=== PATIENT | male | born 1965 | race Caucasian/White ===

== ENCOUNTER 2017-12-07 14:39 | Emergency (ER) | payer OTHER ==
[2017-12-07 14:48] VITALS: BP 166/88
--- NOTE | 2017-12-07 15:45 | ED Physician Documentation ---
PD HPI WOUND RECHECK - Stated complaint Stated Complaint: POSS NEEDLE STICK - Chief complaint Chief Complaint: Needlestick - Histroy obtained from History obtained from: Patient - History of Present Illness Location: Left Uppper Extremity (He is up-to-date on tetanus, he works as a life manager here and he was stuck with a needle that was in the garbage. He brings the needle with him, it is clearly a draw needle as opposed to a needle that should have been used on a patient so that is reassuring.) Review of Systems Constitutional: reports: Reviewed and negative Cardiac: reports: Reviewed and negative Respiratory: reports: Reviewed and negative PD PAST MEDICAL HISTORY - Past Medical History Past Medical History: No - Present Medications Home Medications: Ambulatory Orders Medication Instructions Recorded Confirmed No Known Home Medications [No 12/07/17 12/07/17 Known Home Medications] - Allergies Allergies/Adverse Reactions: Allergies Allergy/AdvReac Type Severity Reaction Status Date / Time No Known Drug Allergies Allergy Verified 12/07/17 14:46 - Social History Does the pt smoke?: No Smoking Status: Never smoker PD ED PE NORMAL - Vitals Vital signs reviewed: Yes - General General: Alert and oriented X 3, No acute distress - Extremities Extremities: Other (Tiny puncture wound left palm near the distal second metacarpal) - Neuro Neuro: Alert and oriented X 3, Normal speech Results - Vitals Vitals: Vital Signs - 24 hr 12/07/17 14:42 Temperature 36.8 C Heart Rate 74 Respiratory 14 Rate Blood Pressure 166/88 H O2 Saturation 96 Oxygen O2 Source Room air PD MEDICAL DECISION MAKING - ED course ED course: He was punctured by draw needle which is very reassuring and I recommended against postexposure prophylaxis, he will have baseline testing and repeat testing per routine. Departure - Departure Disposition: 01 Home, Self Care Clinical Impression: Needlestick injury accident Condition: Good Record reviewed to determine appropriate education?: Yes Instructions: ED Body Fluid Exp HC Worker Comments: He will need repeat infectious disease testing with your physician in 2 months and 6 months, as discussed based on the type of needle this was, blood exposure is pretty much impossible. Your blood pressure was elevated today on check into the emergency department. This does not mean that you have hypertension, it is a common phenomenon to come to the emergency department and have elevated blood pressure. I recommend that you see your primary care physician within the week to have it rechecked when you are feeling better. Discharge Date/Time: 12/07/17 15:52
[2017-12-08 14:47] LABS: HEPATITIS A IGM NON-REACTIVE (NON-REACTIVE); HEPATITIS B CORE ANTIBODY IGM NON-REACTIVE (NON-REACTIVE); HEPATITIS B SURFACE ANTIGEN NON-REACTIVE (NON-REACTIVE); HEPATITIS C ANTIBODY NON-REACTIVE (NON-REACTIVE)
[2017-12-08 15:20] LABS: HIV AG/AB 4TH GEN NON-REACTIVE (NON-REACTIVE)
== END 2017-12-07 15:52 | disposition home or self-care (01) ==
LOC: ED 14:39
DX: S61.432A Puncture wound without foreign body of left hand, initial encounter (principal); Z77.21 Contact with and (suspected) exposure to potentially hazardous body fluids; W46.1XXA Contact with contaminated hypodermic needle, initial encounter; Y99.0 Civilian activity done for income or pay; Y92.238 Other place in hospital as the place of occurrence of the external cause; R03.0 Elevated blood-pressure reading, without diagnosis of hypertension
CPT/HCPCS: 36415; 80074; 87389; 99281; 99282